=== PATIENT | female | born 1995 | race Caucasian/White ===

== ENCOUNTER → 2017-04-19 | Day surgery (SDC) | payer MEDICAID, OTHER ==
[2017-04-17 15:31] VITALS: BMI 34.9
[~2017-04-19] MED LIST: DEXAMETHASONE SOD PHOSPHATE 10 MG/ML 1 ML VIAL IV ONE; HYDROmorphone 0.5 MG/0.5 ML SYRINGE IVP PRN; LACTATED RINGERS 1,000 ML IV ONE; LACTATED RINGERS 1,000 ML IV SCH; LIDOCAINE 1% 20 ML VIAL (10MG/ML) FOR IV START INTRADERMA ONE; LIDOCAINE 1% 20 ML VIAL (10MG/ML) FOR IV START INTRADERMA PRN; LIDOCAINE 1% INJ 10MG/ML (20 ML MDV) SQ ONE; MIDAZOLAM 2 MG/2 ML VIAL ONE; ONDANSETRON 4 MG/2 ML VIAL IVP ONE; PROPOFOL 10 MG/ML 20 ML VIAL IV ONE; Pre Op ABX Message 1 EACH MISC MISCELLANE ONE; SCOPOLAMINE 1.5MG/72HR PATCH TRANSDERM ONE; SODIUM CHLORIDE 0.9% 50 ML with ceFAZolin 1,000 MG IV ONE; fentaNYL (PF) 50 MCG/ML 2 ML AMP ONE
[2017-04-19 12:15] VITALS: RESP 16
--- NOTE | 2017-04-19 13:54 | P.PCN ---
Date of Procedure: 04/19/17 Preoperative Diagnosis: Onychocryptosis both borders of both great toes Procedure(s) Performed: Surgical excision of matrix both borders both great toes Surgeon: Cameron Ku
[2017-04-19 13:55] VITALS: TEMP 98.6
--- NOTE | 2017-04-19 13:58 | P.OP ---
Date of Procedure: 04/19/17 Preoperative Diagnosis: Onychocryptosis both borders both great toes Postoperative Diagnosis: Same Procedure(s) Performed: Surgical excision of matrix both borders both great toes Renal Nurse #1: Cameron Ku Description of Procedure: On the date of surgery the patient was taken to the operating room in good condition placed on the operating table in supine position where an IV was started and adequate IV anesthetic agents were utilized anesthesia was then further supplemented with approximately 9 mL of 1% Xylocaine plain given in digital blocks to both great toes. Since feet and ankles were then prepped and draped in the usual aseptic manner and over heavy web roll padding an ankle tourniquet was placed above the malleoli of the patient's ankle in At this point in time attention was directed to the patient's right ankle where the patient's right foot and ankle were elevated and exsanguinated of blood and after approximately 3 minutes. A time the ankle tourniquet was inflated to approximately 250 mmHg at this time attention was directed to the dorsal aspect of the base of the nail plate medial side of the patient's right hallux where an incision was made which measured approximately one quarter of the centimeter the patient responded to the painful stimuli and the patient's anesthesia was converted to a general anesthetic and L incision was made dissection was carried deep down to level of the matrix area and the matrix was totally excised from the surgical site throughout the surgical procedure copious amounts of sterile saline solution was used to irrigate the surgical site. Upon completion of the matrix ectomy skin edges were coaptated and maintained utilizing 4-0 nylon simple interrupted suture at this point in time attention was directed to the lateral side of the nail plate of the right hallux for the exact same procedure was performed At this point in time attention was directed to the patient's left foot where the exact same procedures were performed on the medial lateral borders of the left hallux. Adaptic Kerlix fluffs four-inch conformer and 4 inch Coban was used to form a compression dressing and the ankle tourniquet to each foot were deflated postoperatively adequate hemostatic return was seen in all digits of both feet specifically the hallux bilaterally patient tolerated the the surgeries and anesthesia well was taken to recovery room in good postoperative condition jerad Ku DPM
[2017-04-19 15:09] VITALS: BP 112/70; PULSE 82
== END ==
LOC: OR 11:47
PROVIDERS: ATTEND Podiatrist Foot & Ankle Surgery
DX: L60.0 Ingrowing nail (principal); L85.9 Epidermal thickening, unspecified; Z88.2 Allergy status to sulfonamides
CPT/HCPCS: 11750 ×2; 81025; 88305; J2250; J1100; J2405; J2001; J3010; J0690; J2704

== ENCOUNTER → 2019-07-24 | Outpatient (CLI) | payer BC ==
--- NOTE | 2019-07-24 16:43 | US ---
EXAMINATION TYPE: US abdomen complete DATE OF EXAM: 07/24/2019 COMPARISON: NONE CLINICAL HISTORY: R10.12 lt upper quadrant pain, R10.32 lt lower. Pain EXAM MEASUREMENTS: Liver Length: 18.5 cm Gallbladder Wall: .2 cm CBD: .2 cm Spleen: 11.3 cm Right Kidney: 11.6 x 4.6 x 4.2 cm Left Kidney: 11.9 x 5.9 x 5.0 cm Pancreas: Tail obscured by overlying bowel gas Liver: Upper limits Gallbladder: wnl Evidence for sonographic Head's sign: No CBD: wnl Spleen: wnl Right Kidney: wnl Left Kidney: wnl Upper IVC: wnl Abd Aorta: wnl IMPRESSION: 1. Abdomen ultrasound appears unremarkable.
--- NOTE | 2019-07-24 16:44 | US ---
EXAMINATION TYPE: US pelvic complete DATE OF EXAM: 07/24/2019 COMPARISON: NONE CLINICAL HISTORY: R10.12 lt upper quadrant pain, R10.32 lt lower. Pain TECHNIQUE: Transabdominal (TA). Transabdominal sonographic images of the pelvis were acquired. EXAM MEASUREMENTS: Uterus: 7.2 x 3.1 x 4.8 cm Endometrial Stripe: .4 cm Right Ovary: 3.1 x 1.7 x 1.6 cm Left Ovary: 2.9 x 1.9 x 2.4 cm 1. Uterus: Anteverted wnl 2. Endometrium: wnl 3. Right Ovary: wnl 4. Left Ovary: wnl Spectral, color and waveform doppler imaging shows good arterial and venous flow within the ovaries ; there is no evidence for ovarian torsion. 5. Bilateral Adnexa: wnl 6. Posterior cul-de-sac: wnl Urinary bladder is sonolucent. IMPRESSION: 1. Visualized pelvis is unremarkable.
== END | disposition home or self-care (01) ==
LOC: RADUSWWP 07:56
PROVIDERS: ATTEND Family Medicine
DX: R10.12 Left upper quadrant pain (principal); R10.32 Left lower quadrant pain
CPT/HCPCS: 76700; 76856; 93975

== ENCOUNTER → 2021-03-09 | Outpatient (CLI) | payer OTHER ==
--- NOTE | 2021-03-18 12:41 | USB ---
Reason for exam: clinical finding. Indicated problem(s): palpable abnormality and large axillary lymph nodes in the left breast. Physical Findings: Nurse did not find any significant physical abnormalities on exam. US Breast Axilla LT Technologist: Nataliia Barlow Left limited breast ultrasound including focal area of concern, retroareolar and axilla demonstrates no cystic or solid lesion seen. These results were verbally communicated with the patient and result sheet given to the patient on 03/09/21. ASSESSMENT: Benign, BI-RAD 2 RECOMMENDATION: Clinical management of the left breast. Manage patient on a clinical basis.
== END | disposition home or self-care (01) ==
LOC: RADUSWWP 07:24
PROVIDERS: ATTEND Family Medicine
DX: R22.32 Localized swelling, mass and lump, left upper limb (principal)

== ENCOUNTER → 2021-04-29 | Outpatient (CLI) | payer OTHER ==
[2021-04-29 10:00] VITALS: BP 125/81; PULSE 100; RESP 14; TEMP 98
--- NOTE | 2021-04-29 10:46 | P.GSHP ---
History of Present Illness H&P Date: 04/29/21 Chief Complaint: lump under left arm Lyudmila is a 25 year old whtie female seen in consultation for Ramila Tony regarding PAC regarding a lump under her left arm. This has been present for several years but becoming increasingly bothersome. She doesn't have increa sed in size. She complains of some tenderness at the site. There is no cyclical correlation to her period. She has a history of nonhodgkins lymphoma, biopsy was from the front of her gums. At that time she had her tonsils and adenoids removed.She did not have any chemotherapy. She follows with oncologist, Dr. Oconnor with [facility]. She does not feel any other lumps masses or nodules of concern in either breast. She does not have any abnormal nipple discharge. She has not had any recent trauma or infection of the breast. She had an ultrasound of the left axilla on 03-09-21 which was Benign BIRAD 2. Caffeine: 2 32 oz pops/week nicotine: none Chocolate: Occasional control pills: Negative, hormones: Negative Soy products: none Family history: maternal grandfather prostate cancer mother: uterine cancer patient: nonhodgkins lymphoma paternal grandmother: lung cancer Hormonal history: Menarche: 12 G0 periods regular; LMP: Apr 05-Apr 16 BCP: none; in the past about 1 year 5 years ago; tried DEPO shot June 2020 hormones: none Medical history: Past history of non-Hodgkin's lymphoma Surgical History: Tonsils and adenoids removed/lesion on her gum removed ingrown toenails bilateral big toes wisdom teeth removed Social history: Nicotine: Negative Alcohol: Occasional Drugs: Negative - Constitutional Constitutional: Reports sweats - EENT Comment: lymphoma of gums Ears: bilateral: tinnitus Ears, nose, mouth and throat: Reports headache - Breasts Breasts: bilateral: as per HPI - Cardiovascular Cardiovascular: Denies chest pain, Denies shortness of breath - Respiratory Respiratory: Denies cough, Denies 7 - Gastrointestinal Comment: reflux - Genitourinary (Female) Genitourinary: Denies dysuria, Denies hematuria - Menstruation Menstruation: Reports period normal - Musculoskeletal Comment: back pain - Integumentary Integumentary: Denies pruritus, Denies rash - Neurological Neurological: Denies numbness, Denies weakness - Psychiatric Psychiatric: Reports anxiety, Reports depression - Endocrine Endocrine: Reports fatigue, Reports weight change - Hematologic/Lymphatic Comment: none - Allergic/Immunologic Allergic/Immunologic: Reports as per HPI Past Medical History Past Medical History: No Reported History Additional Past Medical History / Comment(s): Patient has a cold and finishing amoxicillin. States did not have a fever. History of Any Multi-Drug Resistant Organisms: None Reported Past Surgical History: No Surgical Hx Reported Additional Past Surgical History / Comment(s): wisdom teeth. Past Anesthesia/Blood Transfusion Reactions: No Reported Reaction Past Psychological History: No Psychological Hx Reported Smoking Status: Former smoker Past Alcohol Use History: None Reported Past Drug Use History: None Reported - Past Family History Mother Family Medical History: No Reported History Medications and Allergies Home Medications Medication Instructions Recorded Confirmed Type busPIRone HCL 5 mg PO BID 04/29/21 04/29/21 History Allergies Allergy/AdvReac Type Severity Reaction Status Date / Time Sulfa (Sulfonamide Allergy Rash/Hives Verified 04/29/21 10:00 Antibiotics) Surgical - Exam Vital Signs Temp Pulse Resp BP Pulse Ox 98.0 F 100 14 125/81 98 04/29/21 09:46 04/29/21 09:46 04/29/21 09:46 04/29/21 09:46 04/29/21 09:46 BMI 37.4 - General no distress - Eyes normal ocular movement - ENT normal nares - Neck trachea midline - Respiratory normal respiratory effort, clear to auscultation - Cardiovascular Rhythm: regular Heart Sounds: normal: S1, S2 - Abdomen Abdomen: soft - Integumentary normal turgor - Neurologic no disoriented, no combative - Musculoskeletal normal gait - Psychiatric oriented to time, oriented to person, oriented to place, speech is normal, mem ory intact Breast Exam: BRA: 36D inspection: bilateral grade 2/3 ptosis, prominent left axillary redundant tissue asymmetric to the right side Palpation: Right breast: Multi-positional exam fibrocystic changes no dominant masses or nodules of concern Right axilla: No adenopathy of concern Left breast: Multi-positional exam fibrocystic changes, prominent left axillary redundant tissue no dominant masses or nodules of concern Left axilla: No adenopathy of concern Particular attention to the lymph node bearing areas did not reveal any adenopathy of concern in the cervical region axillary region or the groins No hepatomegaly or splenomegaly of concern Results ultrasound of redundant axillary breast tissue reviewed, no lesions of concern noted BIRAD 2, 8-24-21 Assessment and Plan Assessment: Impression: 1. Redundant left axillary breast tissue asymmetric 2. Fibrocystic breast changes 3. Prior history of non-Hodgkin's lymphoma 4. Anxiety/depression Plan: 1. Patient wishes redundant left axillary breast tissue to be removed. This tissue it makes her very self-conscious, it is hard to find clothes to fit jerod ectly, it becomes tender secondary to chafing at times, and she wishes it to be removed. Additionally with the patient's history of non-Hodgkin's lymphoma it is anxiety provoking her to have redundant asymmetric tissue in the area of the axilla, and makes it more difficult to evaluate this area. Risk and benefits of the procedure discussed risks include but not limited to bleeding, infection, reaction to the anesthetic. The redundant tissue could grow back again she understands this and wishes to proceed.
== END | disposition home or self-care (01) ==
LOC: WWCWWP 09:46
PROVIDERS: ATTEND Surgery
DX: Z53.9 Procedure and treatment not carried out, unspecified reason (principal)

== ENCOUNTER → 2021-06-01 | Outpatient (CLI) | payer OTHER ==
--- NOTE | 2021-06-01 12:17 | P.PN ---
Subjective Progress Note Date: 06/01/21 Principal diagnosis: Redundant left axillary tissue Lyudmila is a 25 year old whtie female seen in consultation for Ramila Tony regarding PA regarding a lump under her left arm. This has been present for several years but becoming increasingly bothersome. She doesn't have increased in size. She complains of some tenderness at the site. There is no cyclical correlation to her period. She has a history of nonhodgkins lymphoma, biopsy was from the front of her gums. At that time she had her tonsils and adenoids removed.She did not have any chemotherapy. She follows with oncologist, Dr. Oconnor [facility]. She does not feel any other lumps masses or nodules of concern in either breast. She does not have any abnormal nipple discharge. She has not had any recent trauma or infection of the breast. She had an ultrasound of the left axilla on 03-09-21 which was Benign BIRAD 2. There is concern on the left as this is very asymmetric to the right. She does have difficulty with hygiene secondary to difficulty being able to shave in that area. She is at increased risk for fungal infection secondary to the redundant nature of the tissue. Caffeine: 2 32 oz pops/week nicotine: none Chocolate: Occasional control pills: Negative, hormones: Negative Soy products: none Family history: maternal grandfather prostate cancer mother: uterine cancer patient: nonhodgkins lymphoma paternal grandmother: lung cancer Hormonal history: Menarche: 12 G0 periods regular; LMP: Apr 05-Apr 16 BCP: none; in the past about 1 year 5 years ago; tried DEPO shot June 2020 hormones: none Medical history: Past history of non-Hodgkin's lymphoma Surgical History: Tonsils and adenoids removed/lesion on her gum removed ingrown toenails bilateral big toes wisdom teeth removed Social history: Nicotine: Negative Alcohol: Occasional Drugs: Negative - Constitutional Constitutional: Reports sweats - EENT Comment: lymphoma of gums Ears: bilateral: tinnitus Ears, nose, mouth and throat: Reports headache - Breasts Breasts: bilateral: as per HPI - Cardiovascular Cardiovascular: Denies chest pain, Denies shortness of breath - Respiratory Respiratory: Denies cough - Gastrointestinal Comment: reflux - Genitourinary (Female) Genitourinary: Denies dysuria, Denies hematuria - Menstruation Menstruation: Reports period normal - Musculoskeletal Comment: back pain - Integumentary Integumentary: Denies pruritus, Denies rash - Neurological Neurological: Denies numbness, Denies weakness - Psychiatric Psychiatric: Reports anxiety, Reports depression - Endocrine Endocrine: Reports fatigue, Reports weight change - Hematologic/Lymphatic Comment: none - Allergic/Immunologic Allergic/Immunologic: Reports as per HPI Objective - Constitutional General appearance: Present: cooperative - EENT Eyes: Present: EOMI ENT: Present: hearing grossly normal - Neck Neck: Present: normal ROM - Respiratory Respiratory: bilateral: CTA - Cardiovascular Rhythm: regular Heart sounds: normal: S1, S2 - Integumentary Integumentary: Present: normal turgor - Musculoskeletal Musculoskeletal: Present: gait normal - Psychiatric Psychiatric: Present: A&O x's 3, appropriate affect, intact judgment & insight - Additional findings Additional findings: Breast exam: Block: 42 D Inpsection: bilateral grade 3 ptosis Palpation: Right breast: Multi-positional exam fibrocystic changes no dominant masses or nodules of concern Right axilla: No adenopathy of concern Left breast: Multi-positional exam fibrocystic changes no dominant masses or nodules of concern Left axilla: Excessive redundant axillary tissue/questionable beginning of fungal infection/no adenopathy of concern Assessment and Plan Assessment: Impression: 1. Excessive redundant left axillary tissue making hygiene difficult as well as prone to fungal infection 2. Fibrocystic breast changes 3. Non-Hodgkin's lymphoma Plan: 1. Resection of excessive redundant left axillary tissue secondary to difficulty with hygiene, asymmetry, and making the patient prone to fungal infection Risks and benefits of the procedure discussed with the patient. She understands and wishes to proceed. We have had a request from the [employer] for a picture of this area which is being performed and sent to the insurance [employer]. CC: Dr. Abreu, Ramila SANDERSON
[2021-06-01 13:25] VITALS: BP 128/82; PULSE 99; RESP 18
== END | disposition home or self-care (01) ==
LOC: WWCWWP 11:53
PROVIDERS: ATTEND Surgery
DX: Z53.9 Procedure and treatment not carried out, unspecified reason (principal)

== ENCOUNTER → 2021-08-17 | Outpatient (CLI) | payer OTHER ==
--- NOTE | 2021-08-18 07:38 | XR ---
EXAMINATION TYPE: XR chest 2V DATE OF EXAM: 08/17/2021 COMPARISON: NONE HISTORY: Chest pain TECHNIQUE: Frontal and lateral views of the chest are obtained. FINDINGS: There is no focal air space opacity. No evidence for pneumothorax. No pleural effusion. The cardiac silhouette size is within normal limits. The osseous structures are grossly intact. IMPRESSION: 1. No acute cardiopulmonary process.
== END | disposition home or self-care (01) ==
LOC: RADXRYALE 17:10
PROVIDERS: ATTEND Family Medicine
DX: R07.89 Other chest pain (principal); U09.9 Post COVID-19 condition, unspecified
CPT/HCPCS: 71046

== ENCOUNTER → 2022-05-16 | Outpatient (CLI) | payer BC ==
--- NOTE | 2022-05-27 20:33 | CE ---
CARDIAC ELECTROPHYSIOLOGY REPORT STUDY PERFORMED: 7-day event monitor. FINDINGS: The patient was monitored for 7 days. The baseline rhythm appeared to be sinus mechanism. She did have episodes of sinus tachycardia of 107 beats per minute. No evidence of any sinus pause or sinus arrest. No evidence of any SVT noted. No evidence of AV block noted. CONCLUSION: 1. This is a 7-day event monitor. 2. The baseline rhythm appeared to be sinus mechanism. 3. The patient did have 1 episode of sinus tachycardia only. 4. No significant sinus pause or sinus arrest. 5. No evidence of advanced AV block noted. MMODL / IJN: [id number] /
--- NOTE | 2022-05-31 10:27 | EM ---
CARDIAC ELECTROPHYSIOLOGY REPORT STUDY PERFORMED: 7-day event monitor. FINDINGS: The patient was monitored for 7 days. The baseline rhythm appeared to be sinus mechanism. She did have episodes of sinus tachycardia of 107 beats per minute. No evidence of any sinus pause or sinus arrest. No evidence of any SVT noted. No evidence of AV block noted. CONCLUSION: 1. This is a 7-day event monitor. 2. The baseline rhythm appeared to be sinus mechanism. 3. The patient did have 1 episode of sinus tachycardia only. 4. No significant sinus pause or sinus arrest. 5. No evidence of advanced AV block noted. MMODL / IJN: [id number] / MTDD
== END | disposition home or self-care (01) ==
LOC: RADECHMAIN 06:54
PROVIDERS: ATTEND Family Medicine
DX: I47.1 Supraventricular tachycardia (principal); R00.2 Palpitations
CPT/HCPCS: 93270

== ENCOUNTER → 2022-06-08 | Outpatient (CLI) | payer BC ==
--- NOTE | 2022-06-08 12:23 | XR ---
EXAMINATION TYPE: XR chest 2V DATE OF EXAM: 06/08/2022 COMPARISON: NONE TECHNIQUE: PA and lateral views submitted. HISTORY: Wheezing FINDINGS: The lungs are clear and there is no pneumothorax, pleural effusion, or focal pneumonia. Heart size normal. No overt failure. IMPRESSION: 1. No acute process.
== END | disposition home or self-care (01) ==
LOC: RADXRMAIN 11:42
PROVIDERS: ATTEND Nurse Practitioner Family
DX: R06.2 Wheezing (principal)
CPT/HCPCS: 71046

== ENCOUNTER → 2023-04-27 | Outpatient (CLI) | payer BC ==
[2023-04-27 14:59] VITALS: BP 119/84; PULSE 84; RESP 17; TEMP 97.8
--- NOTE | 2023-04-27 15:13 | P.PN ---
Subjective Progress Note Date: 04/27/23 Principal diagnosis: redundant left axillary tissue Redundant left axillary tissue Lyudmila is a 27 year old white female seen in consultation in 2020 for Ramila SANDERSON regarding a lump under her left arm. This has been present for several years but becoming increasingly bothersome. She complains of some tenderness at the site. There is no cyclical correlation to her period. She has a history of nonhodgkins lymphoma, biopsy was from the front of her gums. At t hat time she had her tonsils and adenoids removed. She did not have any chemotherapy. She follows with oncologist, Dr. Oconnor [facility]. She does not feel any other lumps masses or nodules of concern in either breast. She does not have any abnormal nipple discharge. She has not had any recent trauma or infection of the breast. She had an ultrasound of the left axilla on 03-09-21 which was Benign BIRAD 2. There is concern on the left as this is very asymmetric to the right. She does have difficulty with hygiene secondary to difficulty being able to shave in that area. She is at increased risk for fungal infection secondary to the redundant nature of the tissue. Although we considered resection in the past, the symptoms have become progressively worse and the patient is requesting after this time the resection be performed. The area has become painful on a very consistent basis, it is hard to keep the area clean, it is difficult to find clothes to fit correctly. She feels that it may have increased in size. Caffeine: 2 32 oz pops/week nicotine: none Chocolate: Occasional control pills: Negative, hormones: Negative Soy products: none Family history: maternal grandfather prostate cancer mother: uterine cancer patient: nonhodgkins lymphoma paternal grandmother: lung cancer Hormonal history: Menarche: 12 G0 periods regular; LMP: Apr 05-Apr 16 BCP: none; in the past about 1 year 5 years ago; tried DEPO shot June 2020 hormones: none Medical history: Past history of non-Hodgkin's lymphoma Surgical History: Tonsils and adenoids removed/lesion on her gum removed ingrown toenails bilateral big toes wisdom teeth removed Social history: Nicotine: Negative Alcohol: Occasional Drugs: Negative - Constitutional Constitutional: Reports sweats - EENT Comment: lymphoma of gums Ears: bilateral: tinnitus Ears, nose, mouth and throat: Reports headache - Breasts Breasts: bilateral: as per HPI - Cardiovascular Cardiovascular: Denies chest pain, Denies shortness of breath - Respiratory Respiratory: Denies cough - Gastrointestinal Comment: reflux - Genitourinary (Female) Genitourinary: Denies dysuria, Denies hematuria - Menstruation Menstruation: Reports period normal - Musculoskeletal Comment: back pain - Integumentary Integumentary: Denies pruritus, Denies rash - Neurological Neurological: Denies numbness, Denies weakness - Psychiatric Psychiatric: Reports anxiety, Reports depression - Endocrine Endocrine: Reports fatigue, Reports weight change - Hematologic/Lymphatic Comment: none - Allergic/Immunologic Allergic/Immunologic: Reports as per HPI Objective - Vital Signs Vital signs: Vital Signs Temp 97.8 F 04/27/23 14:46 Pulse 84 04/27/23 14:46 Resp 17 04/27/23 14:46 BP 119/84 04/27/23 14:46 Pulse Ox 100 04/27/23 14:46 FiO2 Intake & Output 04/26/23 04/27/23 04/27/23 18:59 06:59 18:59 Weight 108.862 kg - Constitutional General appearance: Present: cooperative - EENT Eyes: Present: EOMI ENT: Present: hearing grossly normal - Neck Neck: Present: normal ROM - Respiratory Respiratory: bilateral: CTA - Cardiovascular Heart sounds: normal: S1, S2 - Gastrointestinal General gastrointestinal: Present: soft - Integumentary Integumentary: Present: normal turgor - Musculoskeletal Musculoskeletal: Present: gait normal - Psychiatric Psychiatric: Present: A&O x's 3, appropriate affect, intact judgment & insight - Additional findings Additional findings: Breast exam: Bra: 42 D Inpsection: bilateral grade 3 ptosis Palpation: Right breast: Multi-positional exam fibrocystic changes no dominant masses or nodules of concern Right axilla: No adenopathy of concern Left breast: Multi-positional exam fibrocystic changes no dominant masses or nodules of concern Left axilla: Excessive redundant axillary tissue/questionable beginning of fungal infection/no adenopathy of concern fungal infection under both breast resolved The patient does not have any cervical, axillary, groin, adenopathy of concern. There does not appear to be any hepatomegaly or splenomegaly. Assessment and Plan Assessment: Impression: 1. Excessive redundant left axillary tissue making hygiene difficult as well as prone to fungal infection 2. Fibrocystic breast changes 3. Non-Hodgkin's lymphoma 4. Fungal infection under both breast resolved Plan: 1. Resection of excessive redundant left axillary tissue secondary to difficulty with hygiene, asymmetry, and making the patient prone to fungal infection Risks and benefits of the procedure discussed with the patient. She understands and wishes to proceed. CC: Dr. Gautam
== END ==
LOC: WWCWWP 13:56
PROVIDERS: ATTEND Surgery
DX: N60.19 Diffuse cystic mastopathy of unspecified breast (principal); C85.90 Non-Hodgkin lymphoma, unspecified, unspecified site; Z88.2 Allergy status to sulfonamides

== ENCOUNTER → 2023-05-02 | Day surgery (SDC) | payer BC ==
[2023-04-25 17:56] VITALS: BMI 39.9
[~2023-05-02] MED LIST changes: +ACETAMINOPHEN TAB 500 MG TAB ONE; +ACETAMINOPHEN TAB 500 MG TAB PO ONE; -DEXAMETHASONE SOD PHOSPHATE 10 MG/ML 1 ML VIAL IV ONE; +DEXAMETHASONE SOD PHOSPHATE 4 MG/ML 1 ML VIAL IVP ONE; +HEPARIN SODIUM,PORCINE/PF 5,000 UNIT/0.5 ML SYRINGE SQ PRN; -HYDROmorphone 0.5 MG/0.5 ML SYRINGE IVP PRN; -LACTATED RINGERS 1,000 ML IV SCH; -LIDOCAINE 1% 20 ML VIAL (10MG/ML) FOR IV START INTRADERMA ONE; -LIDOCAINE 1% 20 ML VIAL (10MG/ML) FOR IV START INTRADERMA PRN; +LIDOCAINE 1% INJ 10MG/ML (20 ML MDV) ONE; -LIDOCAINE 1% INJ 10MG/ML (20 ML MDV) SQ ONE; +MIDAZOLAM 2 MG/2 ML VIAL IVP ONE; -ONDANSETRON 4 MG/2 ML VIAL IVP ONE; +ONDANSETRON 4 MG/2 ML VIAL ONE; +PHENYLEPHRINE-0.9% NACL SYG 1,000 MCG/10 ML SYRINGE ONE; -SCOPOLAMINE 1.5MG/72HR PATCH TRANSDERM ONE; +SODIUM CHLORIDE 0.9% 100 ML BAG ONE; -SODIUM CHLORIDE 0.9% 50 ML with ceFAZolin 1,000 MG IV ONE; +SODIUM CHLORIDE 0.9% 50 ML with ceFAZolin 2,000 MG IV ONE; +SUCCINYLCHOLINE CHLORIDE 200 MG/10 ML VIAL IV ONE; +ceFAZolin 1,000 MG VIAL ONE
[2023-05-02 11:04] LABS: Glucose,Whole Blood 92 mg/dL (70-110)
--- NOTE | 2023-05-02 14:56 | P.PCN ---
Date of Procedure: 05/02/23 Preoperative Diagnosis: Redundant left axillary breast tissue Postoperative Diagnosis: Same Procedure(s) Performed: Wide excision redundant left axillary breast tissue Anesthesia: BRETT Surgeon: Rut Martinez Estimated Blood Loss (ml): 5 IV fluids (ml): 700 Pathology: other (Redundant left axillary breast tissue) Condition: stable Disposition: same day Indications for Procedure: Redundant left axillary breast tissue Operative Findings: Fibrofatty tissue left axilla Description of Procedure: The patient was seen in the preoperative area in the area of concern in the left axilla was marked for excision. She was brought to the operative suite. Following induction of anesthesia the left axilla was prepped and draped in a sterile fashion. Wide excision of redundant tissue was performed. The tissue excised was approximately 10 cm x 6 cm. The depth was down onto the pectoralis muscle. The tissue was excised. After we were assured that hemostasis was attained medial and lateral skin flaps were developed. The wound was well irrigated. Surgicel in powder form was applied. The deep tissues were brought together using 3-0 Vicryl suture. 3-0 Vicryl subcutaneous closure was perfor med. This was followed by a 4-0 Monocryl subcuticular closure. The patient tolerated the procedure in stable condition. All instrument and sponge counts were correct at the end of the case.
[2023-05-02 15:32] VITALS: TEMP 97.8
[2023-05-02 15:50] VITALS: RESP 16
[2023-05-02 16:43] VITALS: BP 131/65; PULSE 112
== END | disposition home or self-care (01) ==
LOC: OR 10:20
PROVIDERS: ATTEND Surgery
DX: L98.7 Excessive and redundant skin and subcutaneous tissue (principal); N60.12 Diffuse cystic mastopathy of left breast
CPT/HCPCS: 81025; 88305; 19120; J2250; J0330; J1100; J2405; J0690; J2001; J3010; J2704; J1644; J2371

== ENCOUNTER → 2023-05-05 | Outpatient (CLI) | payer BC ==
--- NOTE | 2023-05-05 11:40 | P.PN ---
Progress Note - Text Progress Note Date: 05/05/23 Lyudmila is a 27 year old status post excision of redundant axillary tissue on [id number]. Examination: Lungs: Clear Heart: Regular rate and rhythm Incision: Clean and dry Impression: Patient doing well postop Plan: Patient to follow up in 2 weeks CC: Dr. Gautam
== END ==
LOC: WWCWWP 11:25
PROVIDERS: ATTEND Surgery
DX: Z04.89 Encounter for examination and observation for other specified reasons (principal); Z98.890 Other specified postprocedural states; Z88.2 Allergy status to sulfonamides

== ENCOUNTER → 2023-05-19 | Outpatient (CLI) | payer BC ==
--- NOTE | 2023-05-19 10:55 | P.PN ---
Progress Note - Text Progress Note Date: 05/19/23 Lyudmila is status post resection fo redundant axillary tissue on 05-02-23. Her pathology was benign. Examination: Incision: Clean and dry Plan: Patient follow-up in 1 year Patient follow-up sooner any questions or concerns Cc: Dr. Gautam
[2023-05-19 11:28] VITALS: BP 122/87; PULSE 122; RESP 18; TEMP 97.6
== END ==
LOC: WWCWWP 10:33
PROVIDERS: ATTEND Surgery
DX: Z98.890 Other specified postprocedural states (principal); Z88.2 Allergy status to sulfonamides

== ENCOUNTER → 2024-04-09 | Outpatient (CLI) | payer BC | LOC: LABWHC1 08:27 | PROVIDERS: ATTEND Family Medicine | DX: Z33.1 Pregnant state, incidental (principal) | CPT/HCPCS: 36415; 84702 ==

== ENCOUNTER 2024-04-28 11:23 | Emergency (ER) | payer BC ==
[2024-04-28 11:27] VITALS: TEMP 98.7
--- NOTE | 2024-04-28 12:00 | ED ---
Female Urogenital HPI - General Chief complaint: Vaginal Bleeding Stated complaint: 6wks /vaginal bleeding Time Seen by Provider: 04/28/24 11:40 Source: patient, RN notes reviewed Mode of arrival: ambulatory Limitations: no limitations - History of Present Illness Initial comments: 28-year-old female at approximately 6 weeks gestation presenting for vaginal bleeding x 1 day. States she noticed the toilet paper had a pink tent when she wiped. Today she noticed a small blood clot on her underwear. She has been following with OB where they performed an ultrasound 2 weeks ago which showed an IUP, however were concerned as her beta hCG levels were not rising as rapidly as they should. Denies abdominal pain. - Related Data Home Medications Medication Instructions Recorded Confirmed Desvenlafaxine Succinate [Pristiq] 50 mg PO DAILY 04/25/23 05/19/23 Glycopyrrolate 1 mg PO DAILY 04/25/23 05/19/23 Liraglutide [Saxenda] 3 mg SQ DAILY 04/25/23 05/19/23 Loratadine [Claritin] 10 mg PO DAILY 04/25/23 05/19/23 Previous Rx's Medication Instructions Recorded Nystatin/Triamcin 1 applic TOPICAL BID #30 gram 02/03/23 [Nystatin-Triamcinolone Cream] Allergies Allergy/AdvReac Type Severity Reaction Status Date / Time Sulfa (Sulfonamide Allergy Rash/Hives Verified 05/19/23 11:24 Antibiotics) Review of Systems ROS Statement: Those systems with pertinent positive or pertinent negative responses have been documented in the HPI. ROS Other: All systems not noted in ROS Statement are negative. Past Medical History Past Medical History: Cancer Additional Past Medical History / Comment(s): HYPERHYDROSIS. HX NON HIDGKIN'S LYMPHOMA OF GUMS-REMOVED History of Any Multi-Drug Resistant Organisms: None Reported Past Surgical History: Tonsillectomy Additional Past Surgical History / Comment(s): wisdom teeth. ROOTS REMOVED FROM BILAT BIG TOES R/T INGROWN TOENAIL. REMOVAL NON HODGKIN'A LYMPHOMA FROM GUM AREA Past Anesthesia/Blood Transfusion Reactions: No Reported Reaction Past Psychological History: Anxiety, Depression Smoking Status: Never smoker Past Alcohol Use History: None Reported Past Drug Use History: None Reported - Past Family History Mother Family Medical History: No Reported History General Exam Limitations: no limitations General appearance: alert, in no apparent distress Head exam: Present: atraumatic, normocephalic, normal inspection Eye exam: Present: normal appearance, PERRL, EOMI. Absent: scleral icterus, conjunctival injection, periorbital swelling GI/Abdominal exam: Present: soft, normal bowel sounds. Absent: distended, tenderness, guarding, rebound, rigid Back exam: Absent: CVA tenderness (R), CVA tenderness (L) Neurological exam: Present: alert, oriented X3 Psychiatric exam: Present: normal affect, normal mood Skin exam: Present: warm, dry, intact, normal color. Absent: rash Course Vital Signs 04/28/24 04/28/24 04/28/24 11:24 11:27 12:27 Temperature 98.7 F Pulse Rate 122 H 89 88 Respiratory 18 20 16 Rate Blood Pressure 139/88 130/80 125/68 O2 Sat by Pulse 99 98 98 Oximetry 04/28/24 04/28/24 04/28/24 14:27 14:51 15:09 Temperature Pulse Rate 88 88 68 Respiratory 20 16 16 Rate Blood Pressure 131/82 120/68 130/60 O2 Sat by Pulse 99 98 98 Oximetry Medical Decision Making - Medical Decision Making Was pt. sent in by a medical professional or institution (, PA, POSITION CLASSIFICATION SPECIALIST, urgent care, hospital, or longterm...) When possible be specific @ -No Did you speak to anyone other than the patient for history (EMS, parent, family, police, friend...)? What history was obtained from this source @ -No Did you review nursing and triage notes (agree or disagree)? Why? @ -I reviewed and agree with nursing and triage notes Were old charts reviewed (outside hosp., previous admission, EMS record, old EKG, old radiological studies, urgent care reports/EKG's, longterm records)? Report findings @ -No old charts were reviewed Differential Diagnosis (chest pain, altered mental status, abdominal pain women, abdominal pain men, vaginal bleeding, weakness, fever, dyspnea, syncope, headache, dizziness, GI bleed, back pain, seizure, CVA, palpatations, mental health, musculoskeletal)? @ -Differential Vaginal Bleeding: Spontaneous , threatened , molar , ectopic , bloody show, incompetent cervix, abruptioplacenta, placenta previa, uterine rupture, dysfunctional uterine bleeding, hemorrhage, uterine fibroids, this is not meant to be an all-inclusive list. EKG interpreted by me (3pts min.). @ -None X-rays interpreted by me (1pt min.). @ -None done CT interpreted by me (1pt min.). @ -None done U/S interpreted by me (1pt. min.). @ -Ultrasound pelvis reveals single intrauterine gestational sac, no heart tones, likely intrauterine demise What testing was considered but not performed or refused? (CT, X-rays, U/S, labs)? Why? @ -None What meds were considered but not given or refused? Why? @ -None Did you discuss the management of the patient with other professionals (professionals i.e. , PA, POSITION CLASSIFICATION SPECIALIST, lab, RT, psych nurse, social services technician, network/telecom engineer, teacher, army officer, business case analyst)? Give summary @ -No Was smoking cessation discussed for >3mins.? @ -No Was critical care preformed (if so, how long)? @ -No Were there social determinants of health that impacted care today? How? (Homelessness, low income, unemployed, alcoholism, drug addiction, transportation, low edu. Level, literacy, decrease access to med. care, correction, re hab)? @ -No Was there de-escalation of care discussed even if they declined (Discuss DNR or withdrawal of care, Hospice)? DNR status @ -No What co-morbidities impacted this encounter? (DM, HTN, Smoking, COPD, CAD, Cancer, CVA, ARF, Chemo, Hep., AIDS, mental health diagnosis, sleep apnea, morbid obesity)? @ -None Was patient admitted / discharged? Hospital course, mention meds given and route, prescriptions, significant lab abnormalities, going to OR and other pertinent info. @ -Discharge. This is a 28-year-old female presenting at approximately 6 weeks gestation for vaginal bleeding x 1 day. Vital signs are initially remarkable for tachycardia, however stabilizes to normal rate upon reevaluation. All other vital signs within acceptable limits. Abdomen is soft and nontender. hCG is 3538 today, which is significantly decreased from 6264 on April 22. Ultrasound reveals single intrauterine gestational sac with no heart tones, likely intrauterine demise. Blood type O+, RhoGAM not indicated. Urinalysis remarkable for large blood. Culture sent. Patient was updated on results, discussed diagnosis of threatened miscarriage. Advised to follow-up with OB in 2 days for repeat ultrasound and beta-hCG testing. Strict return precautions discussed and patient conveys understanding and agrees to plan. Case was discussed with my ED attending Dr. Dempsey. Patient discharged in stable condition. Undiagnosed new problem with uncertain prognosis? @ -No Drug Therapy requiring intensive monitoring for toxicity (Heparin, Nitro, Insulin, Cardizem)? @ -No Were any procedures done? @ -No Diagnosis/symptom? @ -Threatened Acute, or Chronic, or Acute on Chronic? @ -Acute Uncomplicated (without systemic symptoms) or Complicated (systemic symptoms)? @ -Uncomplicated Side effects of treatment? @ -No Exacerbation, Progression, or Severe Exacerbation? @ -No Poses a threat to life or bodily function? How? (Chest pain, USA, CA, pneumonia, PE, COPD, DKA, ARF, appy, cholecystitis, CVA, Diverticulitis, Homicidal, Suicidal, threat to staff... and all critical care pts) @ -Not at this time - Lab Data Result diagrams: 04/28/24 11:42 04/28/24 11:42 Lab Results 04/28/24 04/28/24 04/28/24 Range/Units 11:42 11:42 11:42 WBC 9.1 (3.8-10.6) k/uL RBC 4.68 (3.80-5.40) m/uL Hgb 13.6 (11.4-16.0) gm/dL Hct 41.3 (34.0-46.0) % MCV 88.3 (80.0-100.0) fL MCH 29.1 (25.0-35.0) pg MCHC 32.9 (31.0-37.0) g/dL RDW 13.3 (11.5-15.5) % Plt Count 457 H (150-450) k/uL MPV 7.0 Neutrophils % 66 % Lymphocytes % 25 % Monocytes % 4 % Eosinophils % 3 % Basophils % 1 % Neutrophils # 6.0 (1.3-7.7) k/uL Lymphocytes # 2.3 (1.0-4.8) k/uL Monocytes # 0.4 (0-1.0) k/uL Eosinophils # 0.3 (0-0.7) k/uL Basophils # 0.0 (0-0.2) k/uL Sodium 140 (137-145) mmol/L Potassium 4.5 (3.5-5.1) mmol/L Chloride 103 (98-107) mmol/L Carbon Dioxide 27 (22-30) mmol/L Anion Gap 10 mmol/L BUN 7 (7-17) mg/dL Creatinine 0.55 (0.52-1.04) mg/dL Est GFR (CKD-EPI)AfAm >90 (>60 ml/min/1.73 sqM) Est GFR (CKD-EPI)NonAf >90 (>60 ml/min/1.73 sqM) Glucose 115 H (74-99) mg/dL Plasma Lactic Acid Kurt (0.7-2.0) mmol/L Calcium 9.9 (8.4-10.2) mg/dL Total Bilirubin 0.6 (0.2-1.3) mg/dL AST 26 (14-36) U/L ALT 21 (4-34) U/L Alkaline Phosphatase 54 (38-126) U/L Total Protein 7.5 (6.3-8.2) g/dL Albumin 4.5 (3.5-5.0) g/dL HCG, Quant 3538.1 mIU/mL Urine Color Yellow Urine Appearance Cloudy H (Clear) Urine pH 7.0 (5.0-8.0) Ur Specific [place] 1.024 (1.001-1.035) Urine Protein Trace H (Negative) Urine Glucose (UA) Negative (Negative) Urine Ketones Negative (Negative) Urine Blood Large H (Negative) Urine Nitrite Negative (Negative) Urine Bilirubin Negative (Negative) Urine Urobilinogen <2.0 (<2.0) mg/dL Ur Leukocyte Esterase Small H (Negative) Urine RBC 7 H (0-5) /hpf Urine WBC 4 (0-5) /hpf Ur Squamous Epith Cells 7 H (0-4) /hpf Urine Bacteria Rare H (None) /hpf Urine Mucus Rare H (None) /hpf Blood Type Blood Type Recheck Bld Type Recheck Status 04/28/24 04/28/24 Range/Units 11:42 12:09 WBC (3.8-10.6) k/uL RBC (3.80-5.40) m/uL Hgb (11.4-16.0) gm/dL Hct (34.0-46.0) % MCV (80.0-100.0) fL MCH (25.0-35.0) pg MCHC (31.0-37.0) g/dL RDW (11.5-15.5) % Plt Count (150-450) k/uL MPV Neutrophils % % Lymphocytes % % Monocytes % % Eosinophils % % Basophils % % Neutrophils # (1.3-7.7) k/uL Lymphocytes # (1.0-4.8) k/uL Monocytes # (0-1.0) k/uL Eosinophils # (0-0.7) k/uL Basophils # (0-0.2) k/uL Sodium (137-145) mmol/L Potassium (3.5-5.1) mmol/L Chloride (98-107) mmol/L Carbon Dioxide (22-30) mmol/L Anion Gap mmol/L BUN (7-17) mg/dL Creatinine (0.52-1.04) mg/dL Est GFR (CKD-EPI)AfAm (>60 ml/min/1.73 sqM) Est GFR (CKD-EPI)NonAf (>60 ml/min/1.73 sqM) Glucose (74-99) mg/dL Plasma Lactic Acid Kurt 1.5 (0.7-2.0) mmol/L Calcium (8.4-10.2) mg/dL Total Bilirubin (0.2-1.3) mg/dL AST (14-36) U/L ALT (4-34) U/L Alkaline Phosphatase (38-126) U/L Total Protein (6.3-8.2) g/dL Albumin (3.5-5.0) g/dL HCG, Quant mIU/mL Urine Color Urine Appearance (Clear) Urine pH (5.0-8.0) Ur Specific [place] (1.001-1.035) Urine Protein (Negative) Urine Glucose (UA) (Negative) Urine Ketones (Negative) Urine Blood (Negative) Urine Nitrite (Negative) Urine Bilirubin (Negative) Urine Urobilinogen (<2.0) mg/dL Ur Leukocyte Esterase (Negative) Urine RBC (0-5) /hpf Urine WBC (0-5) /hpf Ur Squamous Epith Cells (0-4) /hpf Urine Bacteria (None) /hpf Urine Mucus (None) /hpf Blood Type O Positive Blood Type Recheck No Previous Record Bld Type Recheck Status [facility] ONLY Disposition Clinical Impression: Threatened Disposition: HOME SELF-CARE Condition: Stable Instructions (If sedation given, give patient instructions): Threatened Miscarriage (ED) Additional Instructions: Follow-up with OB in 2 days for repeat ultrasound and hCG levels. Please return to the Emergency Department if symptoms worsen or any other concerns. Is patient prescribed a controlled substance at d/c from ED?: No Referrals: Eliceo Gautam DO [Primary Care Provider] - 1-2 days Time of Disposition: 15:00
[2024-04-28 12:24] LABS: Basophils % (A) 1 %; Eosinophils # (A) 0.3 k/uL (0-0.7); Eosinophils % (A) 3 %; HCT 41.3 % (34.0-46.0); HGB 13.6 gm/dL (11.4-16.0); Lymphocytes # (A) 2.3 k/uL (1.0-4.8); Lymphocytes % (A) 25 %; MCH 29.1 pg (25.0-35.0); MCHC 32.9 g/dL (31.0-37.0); MCV 88.3 fL (80.0-100.0); Monocytes # (A) 0.4 k/uL (0-1.0); Monocytes % (A) 4 %; Neutrophils % (A) 66 %; Platelet Count 457 k/uL (150-450); RBC 4.68 m/uL (3.80-5.40); RDW 13.3 % (11.5-15.5); WBC 9.1 k/uL (3.8-10.6)
[2024-04-28 12:30] LABS: Appearance,Urine Cloudy (Clear); Bacteria,Urine Rare /hpf; Bilirubin,Urine Negative (Negative); Blood,Urine Large (Negative); Color,Urine Yellow; Glucose,Urine (UA) Negative (Negative); Ketones,Urine Negative (Negative); Leukocyte Esterase,Urine Small (Negative); Mucus,Urine Rare /hpf; Nitrite,Urine Negative (Negative); Protein,Urine Trace (Negative); RBC,Urine 7 /hpf (0-5); Specific Gravity,Urine 1.024 (1.001-1.035); Squamous Epithelial Cell,Urine 7 /hpf (0-4); Urobilinogen,Urine <2.0 mg/dL (<2.0); WBC,Urine 4 /hpf (0-5)
[2024-04-28 12:41] LABS: ALT 21 U/L (4-34); AST 26 U/L (14-36); African American GFR (CKD) >90 (>60 ml/min/1.73 sqM); Albumin 4.5 g/dL (3.5-5.0); Alkaline Phosphatase 54 U/L (38-126); Anion Gap 10 mmol/L; Blood Urea Nitrogen 7 mg/dL (7-17); Calcium 9.9 mg/dL (8.4-10.2); Carbon Dioxide 27 mmol/L (22-30); Chloride 103 mmol/L (98-107); Glucose 115 mg/dL (74-99); Non-African American GFR(CKD) >90 (>60 ml/min/1.73 sqM); Potassium 4.5 mmol/L (3.5-5.1); Sodium 140 mmol/L (137-145); Total Bilirubin 0.6 mg/dL (0.2-1.3); Total Protein 7.5 g/dL (6.3-8.2)
[2024-04-28 12:57] LABS: HCG,Quantitative Serum 3538.1 mIU/mL
--- NOTE | 2024-04-28 14:19 | US ---
EXAMINATION TYPE: Transabdominal DATE OF EXAM: 04/28/2024 1:06 PM COMPARISON: NONE CLINICAL INDICATION: Female, 28 years old with history of vaginal bleeding in ; Bleeding TECHNIQUE: Transvaginal (TV) and Transabdominal (TA) with grayscale and color Doppler imaging includi ng first trimester . FINDINGS: EXAM MEASUREMENTS: GESTATIONAL AGE / DATING Physician Established: Not yet established Dates by LMP: (8 weeks/5 days) EDC: 12/03/2024 Dates by First Scan: No previous this is first scan Dates by Current Scan for: (6 weeks/0 days) EDC: 12/19/2024 MATERNAL ANATOMY Uterus: 7.8 x 4.5 x 4.9 cm Right Ovary: 2.6 x 1.6 x 1.3 cm Left Ovary: 2.7 x 2.2 x 2.5 cm Post CDS / Adnexa: wnl Presence of free fluid: no Presence of corpus luteal cyst: no Presence of subchorionic bleed: no GESTATION / SURVEY Rhythm: No heart tones seen. IUP: No cardiac activity noted on today's scan. Consider intrauterine demise. [place]-rump length is 0.[address] this gestation at 6 weeks 0 days gestation based on cr own-rump length. Beta HcG (if available): Not available at this time IMPRESSION: 1. Single intrauterine gestational sac. No heart tones could be detected during this examinatio n. Correlate with the beta hCG. Early versus intrauterine demise. Follow-up recommend ed. [facility], Workstation: [facility], 04/28/2024 2:17 PM
[2024-04-28 14:52] VITALS: RESP 16
[2024-04-28 15:10] VITALS: BP 130/60; PULSE 68
== END 2024-04-28 15:10 | disposition home or self-care (01) ==
LOC: EC 11:23
CPT/HCPCS: 36415; 76801; 76817; 80053; 81001; 83605; 84702; 85025; 86900; 86901; 99284

== ENCOUNTER → 2024-04-30 | Outpatient (CLI) | payer BC ==
[2024-04-30 18:03] LABS: Basophils # (A) 0.05 X 10*3/uL (0.00-0.10); Basophils % (A) 0.5 %; Eosinophils # (A) 0.21 X 10*3/uL (0.04-0.35); Eosinophils % (A) 2.1 %; HCT 39.1 % (37.2-46.3); HGB 12.9 g/dL (12.0-15.0); Lymphocytes # (A) 2.53 X 10*3/uL (0.90-5.00); Lymphocytes % (A) 25.9 %; MCH 29.1 pg (27.0-32.0); MCV 88.1 FL (80.0-97.0); Monocytes # (A) 0.56 X 10*3/uL (0.20-1.00); Monocytes % (A) 5.7 %; NRBC Per 100 WBC 0 X 10*3/uL (0.00-0.01); Neutrophils % (A) 65.6 %; Platelet Count 449 X 10*3/uL (140-440); RBC 4.44 X 10*6/uL (4.10-5.20); RDW 13.2 % (11.5-14.5); WBC 9.77 X 10*3/uL (4.50-10.00)
== END | disposition home or self-care (01) ==
LOC: LABPAT 11:29
PROVIDERS: ATTEND Obstetrics & Gynecology Obstetrics
CPT/HCPCS: 85025; 86850; 86900; 86901

== ENCOUNTER 2024-05-04 13:32 | Emergency (ER) | payer BC ==
[2024-05-04 13:41] VITALS: TEMP 98.3
--- NOTE | 2024-05-04 13:44 | ED ---
General Adult HPI - General Chief complaint: Chest Pain Stated complaint: tachycardic Time Seen by Provider: 05/04/24 13:44 Source: patient, RN notes reviewed Mode of arrival: ambulatory Limitations: no limitations - History of Present Illness Initial comments: 28-year-old female presenting to the emergency department with referral from urgent care with concern for tachycardia. Patient states that over the past approximately week she has been feeling relatively under the weather including a dry scratchy throat and this morning she woke up with pain in her chest. Patient was advised by urgent care report to the emergency department to rule out potential PE due to fluctuating tachycardia on evaluation., Patient states that she is going through a at this time and is experiencing mild lower abdominal cramping and mild vaginal bleeding. She denies lower extremity edema/pain, recent prolonged travel, recent surgeries, estrogen use, history of DVT or blood clotting disorders. Denies cough, shortness of breath, headaches, blurry or double vision, fevers or chills. - Related Data Home Medications Medication Instructions Recorded Confirmed Desvenlafaxine Succinate [Pristiq] 50 mg PO DAILY 04/25/23 05/04/24 Glycopyrrolate 1 mg PO DAILY 04/25/23 05/04/24 Loratadine [Claritin] 10 mg PO DAILY 04/25/23 05/04/24 Famotidine 40 mg PO QAM 04/30/24 05/04/24 Vit No.179/Iron/Folic 1 tab PO DAILY 04/30/24 05/04/24 [ Tablet] Allergies Allergy/AdvReac Type Severity Reaction Status Date / Time latex Allergy Itching Verified 05/04/24 15:49 Sulfa (Sulfonamide Allergy Rash/Hives Verified 05/04/24 15:49 Antibiotics) sulfamethoxazole Allergy Rash/Hives Verified 05/04/24 15:49 [From Bactrim] trimethoprim [From Bactrim] Allergy Rash/Hives Verified 05/04/24 15:49 egg AdvReac Nausea & Verified 05/04/24 15:49 Vomiting & Diarrhea Milk Containing Products AdvReac Nausea & Verified 05/04/24 15:49 (Dairy) Vomiting & Diarrhea Review of Systems ROS Statement: Those systems with pertinent positive or pertinent negative responses have been documented in the HPI. ROS Other: All systems not noted in ROS Statement are negative. Past Medical History Past Medical History: Cancer Additional Past Medical History / Comment(s): MISSED AB, HYPERHYDROSIS. 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 ROOTS REMOVED FROM BILAT BIG TOES R/T INGROWN TOENAIL. REMOVAL NON HODGKIN's LYMPHOMA(SECTION WAS COVERING TOOTH-APPEARED A CYST) FROM GUM AREA Past Anesthesia/Blood Transfusion Reactions: No Reported Reaction Additional Past Anesthesia/Blood Transfusion Reaction / Comment(s): EMOTIONAL AFTER ANESTHESIA. NO HX BLOOD TRANSFUSION Past Psychological History: Anxiety, Depression Smoking Status: Never smoker Past Alcohol Use History: None Reported Past Drug Use History: None Reported - Past Family History Mother Family Medical History: No Reported History General Exam Limitations: no limitations General appearance: alert, in no apparent distress, anxious Eye exam: Present: normal appearance, PERRL, EOMI. Absent: scleral icterus, conjunctival injection, periorbital swelling ENT exam: Present: normal exam, mucous membranes moist Neck exam: Present: normal inspection. Absent: tenderness, meningismus, lymphadenopathy Respiratory exam: Present: normal lung sounds bilaterally. Absent: respiratory distress, wheezes, rales, rhonchi, stridor Cardiovascular Exam: Present: regular rate, normal rhythm, normal heart sounds. Absent: systolic murmur, diastolic murmur, rubs, gallop, clicks GI/Abdominal exam: Present: soft, normal bowel sounds. Absent: distended, tenderness, guarding, rebound, rigid Extremities exam: Present: normal inspection, full ROM, normal capillary refill. Absent: tenderness, pedal edema, joint swelling, calf tenderness Back exam: Present: normal inspection Neurological exam: Present: alert, oriented X3, CN II-XII intact Skin exam: Present: warm, dry, intact, normal color. Absent: rash Course Vital Signs 05/04/24 05/04/24 05/04/24 13:35 13:41 15:00 Temperature 98.3 F Pulse Rate 98 68 60 Respiratory 18 16 16 Rate Blood Pressure 138/81 130/68 130/60 O2 Sat by Pulse 100 98 98 Oximetry Medical Decision Making - Medical Decision Making Was pt. sent in by a medical professional or institution (Dr., PA, GROUNDSKEEPER SUPERVISOR, urgent care, hospital, or half-way...) When possible be specific @ -No Did you speak to anyone other than the patient for history (EMS, parent, family, police, friend...)? What history was obtained from this source @ -No Did you review nursing and triage notes (agree or disagree)? Why? @ -I reviewed and agree with nursing and triage notes Were old charts reviewed (outside hosp., previous admission, EMS record, old EKG, old radiological studies, urgent care reports/EKG's, half-way records)? Report findings @ -reviewed the patient's previous transabdominal ultrasound is remarkable for a single intrauterine gestational sac with no heart tones that is correlating with a missed completed on 04/28/24 Differential Diagnosis (chest pain, altered mental status, abdominal pain women, abdominal pain men, vaginal bleeding, weakness, fever, dyspnea, syncope, headache, dizziness, GI bleed, back pain, seizure, CVA, palpatations, mental health, musculoskeletal)? @ -Differential Chest Pain: Stable Angina, Unstable Angina, STEMI, NSTEMI Aortic Dissection, Pneumothorax, Musculoskeletal, Esophageal Spasm GERD, Cholecystitis, Pancreatitis, Zoster, this is not meant to be an all-inclusive list. EKG interpreted by me (3pts min.). @ -completed at 1354 sinus rhythm with a ventricular rate of 92, parable 152, QRS 93, QTc 404. No acute signs of ischemia. X-rays interpreted by me (1pt min.). @ -Chest x-ray no acute cardiopulmonary process or disease. CT interpreted by me (1pt min.). @ -CT of the chest negative for pulmonary embolism. U/S interpreted by me (1pt. min.). @ -None done What testing was considered but not performed or refused? (CT, X-rays, U/S, labs)? Why? @ -None What meds were considered but not given or refused? Why? @ -None Did you discuss the management of the patient with other professionals (professionals i.e. MARIA E Cristobal, GROUNDSKEEPER SUPERVISOR, lab, RT, psych nurse, web content & social media manager, train control electronic technician, teacher, loan officer assistant, case work aide)? Give summary @ -No Was smoking cessation discussed for >3mins.? @ -No Was critical care preformed (if so, how long)? @ -No Were there social determinants of health that impacted care today? How? (Home lessness, low income, unemployed, alcoholism, drug addiction, transportation, low edu. Level, literacy, decrease access to med. care, intermediate, rehab)? @ -No Was there de-escalation of care discussed even if they declined (Discuss DNR or withdrawal of care, Hospice)? DNR status @ -No What co-morbidities impacted this encounter? (DM, HTN, Smoking, COPD, CAD, Cancer, CVA, ARF, Chemo, Hep., AIDS, mental health diagnosis, sleep apnea, morbid obesity)? @ -None Was patient admitted / discharged? Hospital course, mention meds given and route, prescriptions, significant lab abnormalities, going to OR and other pertinent info. @ -discharged. 28-year-old female with referral from urgent care for tachycardia to rule out blood clot. My evaluation patient is resting, no signs acute distress. Her patient is nontachycardic. States that she is having mild chest pain on evaluation. States that is nonradiating. Additionally states that she has a "scratchy throat ". Patient's laboratory studies including CBC, CMP, troponin within normal limits, strep, covid, flu, RSV negative. D-dimer is mil dly elevated 0.66 and she will be sent for CTA of the chest to rule out PE, as resulted negative. Patient symptoms align with a viral syndrome recommend she continue supportive treatment at home. There is minimal clinical concern for uterine abnormality at this time therefore ultrasound is deferred. Patient is and agree with deferring ultrasound as she states that she has follow-up scheduled with OB as well. All questions answered at bedside and strict return parameters discussed with the patient and she is verbalized understanding. Case discussed with Dr. Brito. The patient's heart score is 0 there is minimal clinical concern for an adverse event in the next few weeks and observation for cardiac monitoring is not necessary at this time Undiagnosed new problem with uncertain prognosis? @ -No Drug Therapy requiring intensive monitoring for toxicity (Heparin, Nitro, In sulin, Cardizem)? @ -No Were any procedures done? @ -No Diagnosis/symptom? @ -viral syndrome, sore throat Acute, or Chronic, or Acute on Chronic? @ -acute Uncomplicated (without systemic symptoms) or Complicated (systemic symptoms)? @ -uncomplicated Side effects of treatment? @ -No Exacerbation, Progression, or Severe Exacerbation? @ -No Poses a threat to life or bodily function? How? (Chest pain, USA, NH, pneumonia, PE, COPD, DKA, ARF, appy, cholecystitis, CVA, Diverticulitis, Homicidal, Suicid al, threat to staff... and all critical care pts) @ -No - Lab Data Result diagrams: 05/04/24 13:57 05/04/24 13:57 Lab Results 05/04/24 05/04/24 05/04/24 Range/Units 13:57 13:57 13:57 WBC 7.5 (3.8-10.6) k/uL RBC 4.50 (3.80-5.40) m/uL Hgb 13.1 (11.4-16.0) gm/dL Hct 38.9 (34.0-46.0) % MCV 86.3 (80.0-100.0) fL MCH 29.1 (25.0-35.0) pg MCHC 33.7 (31.0-37.0) g/dL RDW 13.5 (11.5-15.5) % Plt Count 391 (150-450) k/uL MPV 7.1 Neutrophils % 71 % Lymphocytes % 20 % Monocytes % 4 % Eosinophils % 3 % Basophils % 0 % Neutrophils # 5.3 (1.3-7.7) k/uL Lymphocytes # 1.5 (1.0-4.8) k/uL Monocytes # 0.3 (0-1.0) k/uL Eosinophils # 0.3 (0-0.7) k/uL Basophils # 0.0 (0-0.2) k/uL PT 10.7 (10.0-12.5) sec INR 1.0 (<1.2) APTT 26.6 (22.0-30.0) sec D-Dimer 0.66 H (<0.60) mg/L FEU Sodium 140 (137-145) mmol/L Potassium 4.2 (3.5-5.1) mmol/L Chloride 104 (98-107) mmol/L Carbon Dioxide 26 (22-30) mmol/L Anion Gap 10 mmol/L BUN 7 (7-17) mg/dL Creatinine 0.57 (0.52-1.04) mg/dL Est GFR (CKD-EPI)AfAm >90 (>60 ml/min/1.73 sqM) Est GFR (CKD-EPI)NonAf >90 (>60 ml/min/1.73 sqM) Glucose 91 (74-99) mg/dL Calcium 9.3 (8.4-10.2) mg/dL Magnesium 1.7 (1.6-2.3) mg/dL Total Bilirubin 0.3 (0.2-1.3) mg/dL AST 27 (14-36) U/L ALT 25 (4-34) U/L Alkaline Phosphatase 63 (38-126) U/L Troponin I (0.000-0.034) ng/mL Total Protein 8.1 (6.3-8.2) g/dL Albumin 4.6 (3.5-5.0) g/dL Lipase 40 (23-300) U/L Influenza Type A (PCR) (Not Detectd) Influenza Type B (PCR) (Not Detectd) RSV (PCR) (Not Detectd) SARS-CoV-2 (PCR) (Not Detectd) Group A Strep (PCR) (Not Detectd) 05/04/24 05/04/24 05/04/24 Range/Units 13:57 13:57 13:57 WBC (3.8-10.6) k/uL RBC (3.80-5.40) m/uL Hgb (11.4-16.0) gm/dL Hct (34.0-46.0) % MCV (80.0-100.0) fL MCH (25.0-35.0) pg MCHC (31.0-37.0) g/dL RDW (11.5-15.5) % Plt Count (150-450) k/uL MPV Neutrophils % % Lymphocytes % % Monocytes % % Eosinophils % % Basophils % % Neutrophils # (1.3-7.7) k/uL Lymphocytes # (1.0-4.8) k/uL Monocytes # (0-1.0) k/uL Eosinophils # (0-0.7) k/uL Basophils # (0-0.2) k/uL PT (10.0-12.5) sec INR (<1.2) APTT (22.0-30.0) sec D-Dimer (<0.60) mg/L FEU Sodium (137-145) mmol/L Potassium (3.5-5.1) mmol/L Chloride (98-107) mmol/L Carbon Dioxide (22-30) mmol/L Anion Gap mmol/L BUN (7-17) mg/dL Creatinine (0.52-1.04) mg/dL Est GFR (CKD-EPI)AfAm (>60 ml/min/1.73 sqM) Est GFR (CKD-EPI)NonAf (>60 ml/min/1.73 sqM) Glucose (74-99) mg/dL Calcium (8.4-10.2) mg/dL Magnesium (1.6-2.3) mg/dL Total Bilirubin (0.2-1.3) mg/dL AST (14-36) U/L ALT (4-34) U/L Alkaline Phosphatase (38-126) U/L Troponin I <0.012 (0.000-0.034) ng/mL Total Protein (6.3-8.2) g/dL Albumin (3.5-5.0) g/dL Lipase (23-300) U/L Influenza Type A (PCR) Not Detected (Not Detectd) Influenza Type B (PCR) Not Detected (Not Detectd) RSV (PCR) Not Detected (Not Detectd) SARS-CoV-2 (PCR) Not Detected (Not Detectd) Group A Strep (PCR) NOT DETECTED (Not Detectd) Disposition Clinical Impression: Viral syndrome Disposition: HOME SELF-CARE Condition: Good Instructions (If sedation given, give patient instructions): Viral Syndrome (ED) Additional Instructions: Please return to the Emergency Department if symptoms worsen or any other concerns. Continue supportive treatment at home using Tylenol, increasing hydration and rest. Is patient prescribed a controlled substance at d/c from ED?: No Referrals: Eliceo Gautam DO [Primary Care Provider] - 1-2 days Time of Disposition: 16:08
[2024-05-04 13:51] VITALS: RESP 16
--- NOTE | 2024-05-04 14:20 | XR ---
EXAMINATION TYPE: XR chest 2V DATE OF EXAM: 05/04/2024 2:07 PM CLINICAL INDICATION: Female, 28 years old with history of chest pain, tachy; [facility] COMPARISON: Chest radiographs from 06/08/2022 TECHNIQUE: XR chest 2V Frontal view of the chest. FINDINGS: Lungs/Pleura: There is no evidence of pleural effusion, focal consolidation, or pneumothorax. Pulmonary vascularity: Unremarkable. Heart/mediastinum: Cardiomediastinal silhouette is unremarkable. Musculoskeletal: No acute osseous pathology. IMPRESSION: No acute cardiopulmonary disease/process. [facility], , 05/04/2024 2:18 PM
[2024-05-04 14:24] LABS: Basophils % (A) 0 %; Eosinophils # (A) 0.3 k/uL (0-0.7); Eosinophils % (A) 3 %; HCT 38.9 % (34.0-46.0); HGB 13.1 gm/dL (11.4-16.0); Lymphocytes # (A) 1.5 k/uL (1.0-4.8); Lymphocytes % (A) 20 %; MCH 29.1 pg (25.0-35.0); MCHC 33.7 g/dL (31.0-37.0); MCV 86.3 fL (80.0-100.0); Mean Platelet Volume 7.1; Monocytes # (A) 0.3 k/uL (0-1.0); Monocytes % (A) 4 %; Neutrophils # (A) 5.3 k/uL (1.3-7.7); Neutrophils % (A) 71 %; Platelet Count 391 k/uL (150-450); RDW 13.5 % (11.5-15.5); WBC 7.5 k/uL (3.8-10.6)
[2024-05-04 14:34] LABS: ALT 25 U/L (4-34); AST 27 U/L (14-36); African American GFR (CKD) >90 (>60 ml/min/1.73 sqM); Albumin 4.6 g/dL (3.5-5.0); Alkaline Phosphatase 63 U/L (38-126); Anion Gap 10 mmol/L; Blood Urea Nitrogen 7 mg/dL (7-17); Calcium 9.3 mg/dL (8.4-10.2); Carbon Dioxide 26 mmol/L (22-30); Chloride 104 mmol/L (98-107); Glucose 91 mg/dL (74-99); Lipase 40 U/L (23-300); Magnesium 1.7 mg/dL (1.6-2.3); Non-African American GFR(CKD) >90 (>60 ml/min/1.73 sqM); Potassium 4.2 mmol/L (3.5-5.1); Sodium 140 mmol/L (137-145); Total Bilirubin 0.3 mg/dL (0.2-1.3); Total Protein 8.1 g/dL (6.3-8.2)
[2024-05-04 14:53] LABS: Partial Thromboplastin Time 26.6 sec (22.0-30.0); Prothrombin Time 10.7 sec (10.0-12.5)
--- NOTE | 2024-05-04 16:05 | CT ---
EXAMINATION TYPE: CT chest angio for PE CT DLP: 548.1 mGycm, Automated exposure control for dose reduction was used. DATE OF EXAM: 05/04/2024 3:28 PM COMPARISON: Chest radiograph from same day. CLINICAL INDICATION: Female, 28 years old with history of tachy, elevated d-dimer, chest pain; Tachy, elevated d-dimer, chest pain. TECHNIQUE/CONTRAST: CTA scan of the thorax is performed with IV Contrast, patient injected with 100 ml mL of Isovue 370, MIP images are created and reviewed these are created on a separate workstation.. FINDINGS: Pulmonary Artery: There is no evidence for a central filling defect within the pulmonary vasculature to suggest acute pulmonary embolism. Limited evaluation of the segmental and subsegmental branches se condary to bolus timing. The pulmonary artery is of normal size. Lungs/Pleura: No evidence of focal consolidation, pleural effusion or pneumothorax. Airway: Large airways are patent. Heart: Heart is within normal limits for size. Vasculature: No evidence of aortic aneurysm. Mediastinum: No gross evidence of adenopathy. Musculoskeletal: No acute osseous abnormalities Soft Tissues/lymph nodes: Unremarkable. Lower neck: No significant findings. Upper Abdomen: No significant findings. IMPRESSION: 1. No evidence of central pulmonary embolism. Limited evaluation of the segmental and subsegmental br anches. [facility], , 05/04/2024 4:02 PM
[2024-05-04] MEDS: ALPRAZolam 0.25 MG TAB PO STA (16:21)
[2024-05-04 16:31] VITALS: BP 130/69; PULSE 65
== END 2024-05-04 16:31 | disposition home or self-care (01) ==
LOC: EC 13:32
CPT/HCPCS: 36415; 71046; 71275; 80053; 83690; 83735; 84484; 85025; 85379; 85610; 85730; 87636; 87651; 93005; 99285